=== PATIENT | female | born 1950 | race Caucasian/White ===

== ENCOUNTER → 2020-04-11 | Outpatient (CLI) | payer MEDICARE, OTHER ==
--- NOTE | 2020-04-11 19:12 | CTL ---
EXAMINATION TYPE: CT Low Dose Lung DATE OF EXAM ORDERED: 04/11/2020 HISTORY: Personal history tobacco use. Lung cancer screening CT DLP: 41.[address] CTDI: 1.1 mGy Automated exposure control for dose reduction was used. DLP 41.20 milligray centimeters SCREENING VISIT: 1 COMPARISON: CT chest 12/19/2014 TECHNIQUE: Low dose computed tomography scan was performed through the chest at 1 mm thick sections a nd reconstructed images in the coronal plane at [address] DIAGNOSTIC QUALITY: Satisfactory FINDINGS: LUNG NODULES: Present, detailed below: In the right middle lobe there is a wedge-shaped area of incre ased attenuation with some associated bronchiectasis that abuts the mediastinum similar to prior exam . In the anterior right upper lobe there is a nodular density measuring approximately 13 x 10 mm on a xial image 158 showing spiculated margin, extensions to the anterior pleural surface. In the right lower lobe there is a pleural-based soft tissue mass medially and posteriorly that measu res 3.9 x 3 cm LUNGS: COPD: Severity: Moderate to severe Fibrosis: Severity: Mild Lymph nodes: Subcentimeter retrocaval pretracheal node is present Other findings: Patient is cachectic RIGHT PLEURAL SPACE: Effusion: None Calcification: None Thickening: None Pneumothorax: None LEFT PLEURAL SPACE: Effusion: None Calcification: None Thickening: None Pneumothorax: None HEART: Heart Size: Normal Coronary calcification: Mild Pericardial effusion: None OTHER FINDINGS: Upper abdomen: Low dense focus within the left lobe of the liver measures 12 mm Bony thorax: There is a spinal curvature. Thoracic spondylosis is present. Supraclavicular region: No definite adenopathy Other: There is streak artifact due to patient's right shoulder prosthesis IMPRESSION: Suspicious CT LUNG RAD AND CT CHEST RECOMMENDATION: Lung-Rad 4B or 4X Very Suspicious: Follow-up Chest CT with o r without contrast or PET/CT and/or tissue sampling. S Modifier (other clinically significant findings):
== END | disposition home or self-care (01) ==
LOC: RADCTMAIN 14:11
PROVIDERS: ATTEND Family Medicine
DX: Z12.2 Encounter for screening for malignant neoplasm of respiratory organs (principal); Z87.891 Personal history of nicotine dependence
CPT/HCPCS: 71271

== ENCOUNTER → 2020-05-12 | Outpatient (CLI) | payer MEDICARE, OTHER ==
--- NOTE | 2020-05-15 17:43 | PE ---
Nuclear medicine PET/CT HISTORY: Lung carcinoma, initial Patient received 7.8 mCi F-18 FDG intravenously in delayed scanning was performed from skull base to the mid thighs. Localization and attenuation correction CT scan was performed. Correlation prior nuclear medicine PET/CT 12/31/2014, CT low dose 04/11/2020 Chest and neck: There is no supraclavicular or cervical adenopathy. No mediastinal, axillary, or oralia r adenopathy. Patient's lung mass in the right lower lobe shows hypermetabolic uptake, SUV is 11.7,th e right upper lobe anteriorly there is a nodular focus as identified on CT which also shows associate d hypermetabolic uptake, SUV is 2.4. Emphysematous changes are present within the lungs, there is no pleural or pericardial effusion. ABDOMEN: No suspicious uptake. No retroperitoneal adenopathy. No evident adrenal mass. There is no as cites or evident liver mass. Some bowel uptake is felt likely to be physiologic. Osseous structures show no suspicious uptake. There is degenerative disc disease and facet arthropath y. IMPRESSION: Findings consistent with patient's history of bronchogenic carcinoma, there may be metast asis, second primary
== END | disposition home or self-care (01) ==
LOC: RADPETMAIN 10:59
PROVIDERS: ATTEND Family Medicine
DX: C34.90 Malignant neoplasm of unspecified part of unspecified bronchus or lung (principal)
CPT/HCPCS: 78815; A9552

== ENCOUNTER 2020-07-12 07:58 | Day surgery (SDC) | payer MEDICARE, OTHER ==
[2020-07-12] MEDS ORDERED: ALPRAZolam 0.25 MG TAB PO PRN (08:02)
[2020-07-12] MEDS ORDERED: HYDROmorphone 0.5 MG/0.5 ML SYRINGE IVP PRN (08:02)
[2020-07-12 08:44] LABS: Mean Platelet Volume 8.9; Platelet Count 272 k/uL (150-450)
[2020-07-12 08:56] LABS: Prothrombin Time 10.5 sec (9.0-12.0)
[2020-07-12 08:57] VITALS: RESP 16; TEMP 97.7
--- NOTE | 2020-07-12 09:59 | XR ---
EXAMINATION TYPE: XR chest 1V portable DATE OF EXAM: 07/12/2020 COMPARISON: Chest x-ray 12/22/2014 HISTORY: Status post right lung biopsy TECHNIQUE: Single frontal view of the chest is obtained. FINDINGS: There is no evident pneumothorax. Right lower lobe lung mass is present. Apical pleural th ickening is present. Cardiac mediastinal silhouette is within normal limits. IMPRESSION: No evident complication status post right lung biopsy.
--- NOTE | 2020-07-12 10:36 | CT ---
EXAMINATION TYPE: CT biopsy lung RT DATE OF EXAM: 07/12/2020 HISTORY: Lung mass right lower lobe, R 91.1 COMPARISON: PET/CT dated 05/12/2020 Maximal barrier technique was utilized, hand hygiene obtained with soap and water. The skin overlyin g a suitable path to the right lower lobe lung mass was localized using CT and the overlying skin was prepped and draped. Lidocaine used for local anesthesia. A skin aftab made with a scalpel. Using C T guidance, access was gained to the lesion with a 20-gauge core needle coaxially through a 19-gauge guide. Core specimen submitted to laboratory for analysis. Following the procedure no immediate comp lications. The patient is discharged in stable condition. Hemostasis achieved. IMPRESSION: SUCCESSFUL CT GUIDED CORE LUNG BIOPSY. PATHOLOGY PENDING. THIS PROCEDURE WAS PERFORMED BY THE UNDER SIGNED.
--- NOTE | 2020-07-12 12:18 | XR ---
EXAMINATION TYPE: XR chest 1V portable DATE OF EXAM: 07/12/2020 COMPARISON: Chest x-ray earlier today HISTORY: Post right lung biopsy TECHNIQUE: Single frontal view of the chest is obtained. FINDINGS: Chronic parenchymal changes with bibasilar opacities. No pneumothorax after right-sided b iopsy. The cardiac silhouette size remains within normal limits. The osseous structures remain suzan neralized. Surgical changes to cervical spine and right shoulder are partially imaged. IMPRESSION: No pneumothorax after right-sided biopsy. Persistent medial right basilar mass. New Left basilar atelectasis.
[2020-07-12 12:28] VITALS: BP 133/60; PULSE 60
== END 2020-07-12 13:18 | disposition home or self-care (01) ==
LOC: RADPROMAIN 07:58
PROVIDERS: ATTEND Internal Medicine Sleep Medicine
DX: C34.31 Malignant neoplasm of lower lobe, right bronchus or lung (principal); J44.9 Chronic obstructive pulmonary disease, unspecified; Z79.1 Long term (current) use of non-steroidal anti-inflammatories (NSAID); Z79.899 Other long term (current) drug therapy; F17.210 Nicotine dependence, cigarettes, uncomplicated
CPT/HCPCS: 32408; 36415; 71045; 77012; 85049; 85610; 88305; 88341; 88342

== ENCOUNTER → 2020-07-19 | Outpatient (CLI) | payer MEDICARE, OTHER ==
[2020-07-19 14:25] LABS: African American GFR (CKD) >90 (>60 ml/min/1.73 sqM); Blood Urea Nitrogen 10 mg/dL (7-17); Non-African American GFR(CKD) 89 (>60 ml/min/1.73 sqM)
--- NOTE | 2020-07-19 15:24 | CT ---
EXAMINATION TYPE: CT brain w con DATE OF EXAM: 07/19/2020 COMPARISON: None HISTORY: Lung Cancer CT DLP: 1121 mGycm Automated exposure control for dose reduction was used. CONTRAST: CT scan of the head is performed with IV Contrast, patient injected with 100 ml mL of Isovue 300. FINDINGS: There is nodular prominence of the left MCA trifurcation measuring 3 mm suspicious for small aneurysm . There are no enhancing masses. Mild generalized degenerative change. No midline shift or mass effec t. Calvarium intact. Craniocervical junction maintained. Sella turcica has a normal appearance. Orbits are symmetric. No s ignificant changes of sinusitis. IMPRESSION: 1. No diagnostic evidence of intracranial metastases. 2. Nodular prominence of the left MCA trifurcation suspicious for aneurysm measuring 3 mm recommend M RA [facility] [place].
--- NOTE | 2020-07-19 15:33 | CT ---
EXAMINATION TYPE: CT chest w con DATE OF EXAM: 07/19/2020 COMPARISON: CT from PET/CT 05/12/2020 HISTORY: Lung cancer CT DLP: 354 mGycm Automated exposure control for dose reduction was used. CONTRAST: CT scan of the chest is performed with IV Contrast, patient injected with 100 ml mL of Isovue 300. FINDINGS: LUNGS: The lungs are remarkable for extensive emphysematous change. There is a nodular spiculated mas s in the right upper lobe hourglass in shape measuring 17 mm x 13 by 14 mm, there are pleural extensi ons There is no pleural effusion or pneumothorax seen. Some right middle lobe atelectatic lung or sca rring is present. The mass in the right lower lobe measures 5.4 x 4.2 x 4.8 cm which shows smooth mar gins, is pleural-based in the right lower lobe medially. The tracheobronchial tree is patent. MEDIASTINUM: There is right hilar adenopathy. Shotty nodes are present in the mediastinum. No perica rdial effusion is seen. AORTA: No additional significant abnormality is seen. OTHER: No evident adrenal mass, low dense focus within the left lobe liver is a stable finding. Post op change right shoulder IMPRESSION: Findings consistent with patient's history of echogenic carcinoma, probable metastasis, right hilar adenopathy, additional lesion in the right upper lobe as described.
== END | disposition home or self-care (01) ==
LOC: RADCTMAIN 13:06
PROVIDERS: ATTEND Internal Medicine Hematology & Oncology
DX: C34.31 Malignant neoplasm of lower lobe, right bronchus or lung (principal)
CPT/HCPCS: 82565; 84520; 70460; 71260; 36415; Q9967

== ENCOUNTER → 2020-07-28 | Outpatient (CLI) | payer MEDICARE, OTHER ==
--- NOTE | 2020-07-31 06:01 | PE ---
EXAMINATION TYPE: PET CT fusion skull to thigh DATE OF EXAM: 07/28/2020 COMPARISON: Prior PET/CT May 12, 2020 HISTORY: Right-sided lung cancer diagnosed in April 2020. TECHNIQUE: Following the intravenous administration of 8.67 mCi of F-18 FDG, whole body images are p erformed from the skull base to the midthigh. Images are reviewed on the computer in the coronal, ax ial, and sagittal planes. Reconstructed rotating images are created on independent workstation and r eviewed on the computer. A localization and attenuation correction CT is performed in conjunction w ith the PET scan. Blood glucose level was 82. SCAN: Subsequent Scan FINDINGS: SKULL BASE AND NECK: No new areas of abnormal hypermetabolic uptake. CHEST, MEDIASTINUM, AND HILAR REGION: Background moderate underlying emphysematous changes redemonstr ated. Persistent posterior medial right lower lobe hypermetabolic mass increased in size now measurin g 5.4 x 4.2 cm, max SUV is 11.42 on prior study fairly stable from prior. This corresponds to site of biopsy-proven adenocarcinoma. There is redemonstration of spiculated 1.5 x 1.1 cm lesion anterior right midlung with hypermetabolic uptake, max SUV is 3.58 on axial image 99 increased from prior. Prominent but subcentimeter right tracheobronchial lymph node axial image 92 is ametabolic. No new ar eas of abnormal hypermetabolic uptake. ABDOMEN AND PELVIS: There is oval eccentric hypermetabolic hyperdense lesion in the proximal transver se colon measuring 2.2 x 0.8 cm axial image 162, max SUV is 8.46. No adrenal masses. No additional areas of suspicious hypermetabolic uptake. OSSEOUS STRUCTURES: No new areas of abnormal hypermetabolic uptake. OTHER CT: Metallic hardware for right shoulder surgery is redemonstrated. S-shaped scoliosis. Facet a rthropathy lower lumbar levels. L5-S1 spondylolisthesis. IMPRESSION: Enlarging right lower lobe mass, max SUV fairly stable corresponds to site of biopsy-prov en adenocarcinoma. Spiculated nodule anterior right midlung fairly stable in size but increased max S UV. No new thoracic adenopathy. Suspicious lesion proximal transverse colon despite recent colonoscop y on PET/CT. No metastatic disease otherwise seen.
== END | disposition home or self-care (01) ==
LOC: RADPETMAIN 08:31
PROVIDERS: ATTEND Family Medicine
DX: C34.31 Malignant neoplasm of lower lobe, right bronchus or lung (principal)
CPT/HCPCS: 78815; A9552

== ENCOUNTER → 2020-08-23 | Outpatient (CLI) | payer MEDICARE, OTHER ==
[~2020-08-23] MED LIST: DOBUTamine DRIP for NUC MED 500 MG in DEXTROSE/WATER 1 250ML.BAG IV PRN
--- NOTE | 2020-08-23 15:32 | ECHOS ---
STRESS ECHOCARDIOGRAM DATE: 08/23/20. LUMASON: Vial INDICATIONS: Pre-Op. MEDICATIONS: BASELINE HEART RATE: 74 BASELINE BLOOD PRESSURE: 141/94 MAXIMUM HEART RATE: 128 MAXIMUM BLOOD PRESSURE: 141/94 85% MPHR: 128 100% MPHR: 151 METS: N/A MAXIMUM STAGE REACHED: N/A TOTAL EXERCISE TIME: 9:47 CLINICAL INFORMATION: Baseline EKG revealed normal sinus rhythm without significant ST changes. With dobutamine administration heart rate went up to 128 beats per minute. The patient did not have any significant symptoms. EKG was unremarkable. There was no arrhythmia. No significant arrhythmia. Rare PVCs were noted. By EKG criteria, this is unremarkable dobutamine stress test. At baseline echocardiogram revealed normal wall motion wall thickening of all segments. With dobutamine administration as per protocol there was progressive increase in contractility of all segments suggesting that there is no evidence of any stress- induced ischemia on this study. IMPRESSION: 1. By EKG criteria, this is a negative dobutamine stress test with without any angina or any EKG changes. 2. Normal dobutamine echocardiogram without evidence of ischemia. MMODL / IJN: [id number] /
== END | disposition home or self-care (01) ==
LOC: RADNMMAIN 09:48
PROVIDERS: ATTEND Thoracic Surgery (Cardiothoracic Vascular Surgery)
DX: Z01.812 Encounter for preprocedural laboratory examination (principal)
CPT/HCPCS: 93351

== ENCOUNTER 2020-09-13 07:00 | Emergency (ER) | payer MEDICARE, OTHER ==
[2020-09-13 07:23] VITALS: TEMP 98.3
--- NOTE | 2020-09-13 07:45 | ED ---
General Adult HPI - General Chief complaint: Recheck/Abnormal Lab/Rx Stated complaint: Post-op chest tube issues Time Seen by Provider: 09/13/20 07:26 Source: patient Mode of arrival: ambulatory Limitations: no limitations - History of Present Illness Initial comments: Dictation was produced using [employer] dictation software. please excuse any gramma tical, word or spelling errors. Chief Complaint: 70-year-old female presents to the emergency department for leaking postoperative chest tube History of Present Illness: 70-year-old female on Friday she was at [facility] where she had thoracoscopy for removal of adenocarcinoma of the lung. Postoperatively a right-sided chest tube was placed. She was hospitalized after the procedure per she was just discharged yesterday. She will go this morning and noticed that her chest tube dressing was saturated. She was told to seek a minute medical attention if she had any drainage. She denies any shortness of breath. Denies any fever, chills or night sweats. She reports that she actually feels pretty good. The ROS documented in this emergency department record has been reviewed and confirmed by me. Those systems with pertinent positive or negative responses have been documented in the HPI. All other systems are other negative and/or noncontributory. PHYSICAL EXAM: General Impression: Alert and oriented x3, not in acute distress HEENT: Normocephalic atraumatic, extra-ocular movements intact, pupils equal and reactive to light bilaterally, mucous membranes moist. Cardiovascular: Heart regular rate and rhythm Chest: Able to complete full sentences, no retractions, no tachypnea, bilateral breath sounds, dressing was removed from the anterior chest. There was no leakage of fluid or blood from the percutaneous chest tube site. All surgical sites are clean dry and intact to the right chest Abdomen: abdomen soft, non-tender, non-distended, no organomegaly Musculoskeletal: Pulses present and equal in all extremities, no peripheral edema Motor: no focal deficits noted Neurological: CN II-XII grossly intact, no focal motor or sensory deficits noted Skin: Intact with no visualized rashes Psych: Normal affect and mood ED course: 80 well-appearing female presents to the emergency department for surgical site leakage of fluid. Physical examination is benign. There is no drainage of fluid. Chest tube equipment appears to be functioning well without any leakage. There is slightly blood-tinged serosanguineous fluid in the chest tube reservoir. Vital signs upon arrival are within acceptable limits.I did speak with patient's primary surgeon Dr. Murphy who states that patient is okay for discharge. States that sometimes the site will leak which is entirely normal. Patient reevaluated bedside at 8:20 AM. She is well-appearing not showing any signs of distress. Patient is agreeable to discharge. She does have an outpatient appointment with her surgeon in 2 days. - Related Data Home Medications Medication Instructions Recorded Confirmed Cyclobenzaprine [Flexeril] 10 mg PO TID 12/19/14 07/12/20 Famotidine [Pepcid] 20 mg PO DAILY PRN 12/19/14 07/12/20 HYDROcodone/APAP 7.5-325MG [[place] 1 tab PO Q6HR PRN 12/19/14 07/12/20 7.5-325] Ibuprofen [Motrin] 800 mg PO Q6HR 12/19/14 07/12/20 traMADol HCl [Ultram] 50 mg PO Q6H PRN 12/19/14 07/12/20 Montelukast [Singulair] 10 mg PO DAILY 08/30/15 07/12/20 diazePAM [Valium] 1 mg PO ONCE 07/12/20 07/12/20 Allergies Allergy/AdvReac Type Severity Reaction Status Date / Time No Known Allergies Allergy Verified 09/13/20 07:17 Review of Systems ROS Statement: Those systems with pertinent positive or pertinent negative responses have been documented in the HPI. ROS Other: All systems not noted in ROS Statement are negative. Past Medical History Past Medical History: Cancer, GERD/Reflux, Musculoskeletal Disorder, Pneumonia History of Any Multi-Drug Resistant Organisms: None Reported Past Surgical History: Orthopedic Surgery, Tubal Ligation Additional Past Surgical History / Comment(s): shoulder, bilat elbow and thumb surgery, knee surgery, neck surgery, rt oopherectomy Past Anesthesia/Blood Transfusion Reactions: No Reported Reaction Additional Past Anesthesia/Blood Transfusion Reaction / Comment(s): patient states no reaction to anesthesia and that she has never received a blood transfusion Past Psychological History: No Psychological Hx Reported Smoking Status: Former smoker Past Alcohol Use History: None Reported Past Drug Use History: None Reported - Past Family History Father Family Medical History: Cancer General Exam Limitations: no limitations Course Vital Signs 09/13/20 07:18 Temperature 98.3 F Pulse Rate 102 H Respiratory 19 Rate Blood Pressure 141/96 O2 Sat by Pulse 92 L Oximetry Disposition Clinical Impression: Complication of chest tube Disposition: HOME SELF-CARE Condition: Good Instructions (If sedation given, give patient instructions): Chest Tubes (DC) Is patient prescribed a controlled substance at d/c from ED?: No Referrals: Fahad Romero MD [Primary Care Provider] - 1-2 days
--- NOTE | 2020-09-13 07:51 | XR ---
EXAMINATION TYPE: XR chest 1V portable DATE OF EXAM: 09/13/2020 HISTORY: Shortness of breath. COMPARISON: 07/12/2020 TECHNIQUE: Single view of the chest is submitted. FINDINGS: Right-sided chest tube is in place with its distal tip overlying the right apical region. There appea rs to be tiny residual right apical pneumothorax. Small amount of subcutaneous air seen along the upp er chest wall. Round mass is noted at the right medial lung base. Hyperinflation compatible with COPD. The heart is stable. Hilar and mediastinal structures are within normal limits. Degenerative changes are seen of the dorsal spine. IMPRESSION: 1. Right-sided chest tube is in place with its distal tip overlying the right apical region. There a ppears to be tiny residual right apical pneumothorax. Small amount of subcutaneous air seen along the upper chest wall.
[2020-09-13 08:29] VITALS: BP 141/91; PULSE 93; RESP 18
== END 2020-09-13 08:27 | disposition home or self-care (01) ==
LOC: EC 07:00
DX: T85.698A Other mechanical complication of other specified internal prosthetic devices, implants and grafts, initial encounter (principal); K21.9 Gastro-esophageal reflux disease without esophagitis; Z79.899 Other long term (current) drug therapy; Z79.1 Long term (current) use of non-steroidal anti-inflammatories (NSAID); Z87.891 Personal history of nicotine dependence
CPT/HCPCS: 71045; 99283

== ENCOUNTER → 2020-11-24 | Outpatient (CLI) | payer MEDICARE, OTHER ==
[2020-11-24 08:13] LABS: African American GFR (CKD) >90 (>60 ml/min/1.73 sqM); Non-African American GFR(CKD) >90 (>60 ml/min/1.73 sqM)
[2020-11-24 08:19] LABS: Blood Urea Nitrogen 15 mg/dL (7-17)
--- NOTE | 2020-11-24 11:20 | CT ---
EXAMINATION TYPE: CT chest w con DATE OF EXAM: 11/24/2020 COMPARISON: 07/28/2020 and 07/19/2020 HISTORY: 70-year-old female C34.11 Lung Ca, Z03.89 suspect mets TECHNIQUE: Contiguous axial scanning of the chest after the administration of 100 ml mL of Isovue 300 . Coronal/sagittal reconstructions performed. CT DLP: 104.10mGycm. Automatic exposure control utilized for a dose reduction. FINDINGS: Heart normal size without pericardial effusion. Mildly ectatic aortic root at 3.6 cm. Mildly ectatic ascending aorta 3.6 cm. Mild atherosclerotic arc h calcifications with conventional chest branching anatomy. 8 mm prominent but nonenlarged precarinal lymph node is unchanged. Right hilar lymph node measures 1.3 cm versus 1.7 cm, previously on 07/19/2020. No new or progressive t horacic lymphadenopathy seen. Moderately advanced centrilobular emphysema. Posterior right lower lobe mass measures 4.6 x 3.1 cm ve rsus 5.5 x 3.9 cm, previously. Graft surgical change periphery of the right midlung and also anterior medial right midlung. Interval resection of the previous anterior right midlung nodule. Some mild th ickening here likely represents scar tissue but should be reassessed at follow-up. No new pulmonary nodules Visualized upper abdomen shows a stable 8 mm cyst anterior left liver lobe. Moderate stool within the splenic flexure of the colon. Further clinical follow-up as well as appropriate for the increased up take within the proximal transverse colon seen on recent PET/CT. Bones: Right shoulder plasty. ACDF hardware. Mild degenerative disc disease mid to lower thoracic spi ne. No osseous destructive process. IMPRESSION: 1. Interval postsurgical change with resection of the previous anterior right midlung nodule. Some mi ld thickening here likely represents scarring and can be reassessed at follow-up. 2. Right hilar lymph node slightly smaller at 1.3 cm versus 1.7 cm, previously. 3. Posterior right lower lobe mass slightly smaller at 4.6 x 3.1 cm versus 5.5 x 2.9 cm, previously. 4. COPD with moderate to advanced emphysema. 5. Follow-up for the area of hypermetabolism along the proximal transverse colon as clinically indica mery. This area is not included on the current exam.
== END | disposition home or self-care (01) ==
LOC: RADCTMAIN 07:10
PROVIDERS: ATTEND Internal Medicine Hematology & Oncology
DX: C34.11 Malignant neoplasm of upper lobe, right bronchus or lung (principal); J43.9 Emphysema, unspecified
CPT/HCPCS: 82565; 84520; 71260; 36415; Q9967

== ENCOUNTER → 2020-12-22 | Outpatient (CLI) | payer MEDICARE, OTHER ==
--- NOTE | 2020-12-22 22:24 | PE ---
EXAMINATION TYPE: PET CT fusion skull to thigh DATE OF EXAM: 12/22/2020 COMPARISON: Most recent CT November 24, 2020. Most recent PET CT July 28, 2020 and older studies HISTORY: Right-sided lung cancer diagnosed April 2020 history of surgery and completed chemotherapy O ctober 25. TECHNIQUE: Following the intravenous administration of 10.74 mCi of F-18 FDG, whole body images are performed from the skull base to the midthigh. Images are reviewed on the computer in the coronal, a xial, and sagittal planes. Reconstructed rotating images are created on independent workstation and reviewed on the computer. A localization and attenuation correction CT is performed in conjunction with the PET scan. Blood glucose level equals 83. SCAN: Subsequent Scan FINDINGS: SKULL BASE AND NECK: No new areas of abnormal hypermetabolic uptake. CHEST, MEDIASTINUM, AND HILAR REGION: Background moderate underlying emphysematous changes are redemo nstrated. Diminished size to posterior medial right lower lung lesion measuring 4.1 x 2.6 cm currentl y ametabolic. Smaller spiculated lesion anteriorly and superior to this is not clearly seen, interval surgical corea ge at this level suspected from most recent PET/CT. Stable prominent but subcentimeter right tracheobronchial lymph node axial image 92 remains ametaboli c. No new hypermetabolic lymph nodes or additional hypermetabolic lesions. ABDOMEN AND PELVIS: Prior hypermetabolic transverse colonic lesion not clearly seen. No adrenal masses. No new areas of suspicious hypermetabolic uptake. OSSEOUS STRUCTURES: Mild diffuse uptake presumed posttreatment change. OTHER CT: Metallic hardware for right shoulder surgery is redemonstrated. S-shaped scoliosis. Facet a rthropathy lower lumbar levels. L5-S1 spondylolisthesis. IMPRESSION: Diminished size to the right lower lobe mass which is currently ametabolic. Interval rese ction of spiculated anterior right mid lung nodule. No new lesions or thoracic adenopathy. No metast atic disease otherwise seen. Complete positive treatment response. No hypermetabolic lesions seen currently.
== END | disposition home or self-care (01) ==
LOC: RADPETMAIN 11:19
PROVIDERS: ATTEND Internal Medicine Hematology & Oncology
DX: C34.31 Malignant neoplasm of lower lobe, right bronchus or lung (principal)
CPT/HCPCS: 78815; A9552

== ENCOUNTER 2021-02-03 11:29 | Emergency (ER) | payer MEDICARE, OTHER ==
[2021-02-03 11:39] VITALS: BP 115/85; PULSE 67; RESP 18; TEMP 98.4
[2021-02-03 12:43] LABS: Anisocytosis Slight; Basophils % (A) 0 %; Eosinophils # (A) 0.1 k/uL (0-0.7); Eosinophils % (A) 1 %; HCT 39.9 % (34.0-46.0); Lymphocytes % (A) 19 %; MCH 30.3 pg (25.0-35.0); MCHC 32.6 g/dL (31.0-37.0); MCV 92.8 fL (80.0-100.0); Mean Platelet Volume 8.3; Monocytes # (A) 0.2 k/uL (0-1.0); Monocytes % (A) 4 %; Neutrophils # (A) 3.9 k/uL (1.3-7.7); Neutrophils % (A) 75 %; Platelet Count 187 k/uL (150-450); RBC 4.31 m/uL (3.80-5.40); RDW 17.2 % (11.5-15.5); WBC 5.2 k/uL (3.8-10.6)
[2021-02-03 12:52] LABS: ALT 15 U/L (4-34); AST 31 U/L (14-36); African American GFR (CKD) 82 (>60 ml/min/1.73 sqM); Albumin 4.6 g/dL (3.5-5.0); Alkaline Phosphatase 56 U/L (38-126); Anion Gap 14 mmol/L; Blood Urea Nitrogen 20 mg/dL (7-17); Calcium 9.6 mg/dL (8.4-10.2); Carbon Dioxide 22 mmol/L (22-30); Chloride 99 mmol/L (98-107); Glucose 93 mg/dL (74-99); Magnesium 2.1 mg/dL (1.6-2.3); Non-African American GFR(CKD) 71 (>60 ml/min/1.73 sqM); Potassium 4.5 mmol/L (3.5-5.1); Sodium 135 mmol/L (137-145); Total Bilirubin 0.5 mg/dL (0.2-1.3); Total Protein 7.7 g/dL (6.3-8.2)
[2021-02-03] MEDS ORDERED: ACETAMINOPHEN TAB 325 MG TAB PO PRN (14:11)
[2021-02-03] MEDS ORDERED: NALOXONE 0.4 MG/ML 1 ML VIAL IV PRN (14:11)
--- NOTE | 2021-02-03 14:11 | ED ---
Recheck HPI - General Source: patient, RN notes reviewed Mode of arrival: ambulatory Limitations: no limitations <Layton Abreu - Last Filed: 02/03/21 14:07> <Yoshi Mejia - Last Filed: 02/03/21 14:16> - General Chief Complaint: Recheck/Abnormal Lab/Rx Stated Complaint: abd labs Time Seen by Provider: 02/03/21 11:39 - History of Present Illness Initial Comments: 70-year-old female presents emergency Department with chief complaint of abnormal labs. 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 She states her thyroid was off. She states she has no history of this. Patient does have a history of cancer in remission. Patient states that she's had no change in symptoms currently. No fevers or chills no nausea vomiting diarrhea constipation no chest pain or shortness breath (Layton Abreu) - Related Data Home Medications Medication Instructions Recorded Confirmed Cyclobenzaprine [Flexeril] 10 mg PO DAILY 12/19/14 02/03/21 Famotidine [Pepcid] 20 mg PO BID 12/19/14 02/03/21 HYDROcodone/APAP 7.5-325MG [[place] 1 tab PO Q6HR PRN 12/19/14 02/03/21 7.5-325] Ibuprofen [Motrin] 800 mg PO Q6HR 12/19/14 02/03/21 traMADol HCl [Ultram] 50 mg PO DAILY PRN 12/19/14 02/03/21 Montelukast [Singulair] 10 mg PO DAILY 08/30/15 02/03/21 Fluconazole [Diflucan] See Taper PO DAILY 02/03/21 02/03/21 Omeprazole 20 mg PO DAILY 02/03/21 02/03/21 ondansetron HCL [Zofran] 8 mg PO Q6H PRN 02/03/21 02/03/21 Allergies Allergy/AdvReac Type Severity Reaction Status Date / Time No Known Allergies Allergy Verified 02/03/21 13:03 Review of Systems ROS Other: All systems not noted in ROS Statement are negative. <Layton Abreu - Last Filed: 02/03/21 14:07> ROS Other: All systems not noted in ROS Statement are negative. <Yoshi Mejia - Last Filed: 02/03/21 14:16> ROS Statement: Those systems with pertinent positive or pertinent negative responses have been documented in the HPI. Past Medical History Past Medical History: Cancer, GERD/Reflux, Musculoskeletal Disorder, Pneumonia History of Any Multi-Drug Resistant Organisms: None Reported Past Surgical History: Orthopedic Surgery, Tubal Ligation Additional Past Surgical History / Comment(s): shoulder, bilat elbow and thumb surgery, knee surgery, neck surgery, rt oopherectomy Past Anesthesia/Blood Transfusion Reactions: No Reported Reaction Additional Past Anesthesia/Blood Transfusion Reaction / Comment(s): patient ates no reaction to anesthesia and that she has never received a blood transfusion Past Psychological History: No Psychological Hx Reported Smoking Status: Former smoker Past Alcohol Use History: None Reported Past Drug Use History: Marijuana - Past Family History Father Family Medical History: Cancer <Layton Abreu - Last Filed: 02/03/21 14:07> General Exam Limitations: no limitations General appearance: alert, in no apparent distress Head exam: Present: atraumatic, normocephalic, normal inspection ENT exam: Present: normal exam, normal oropharynx, mucous membranes moist Neck exam: Present: normal inspection. Absent: tenderness, meningismus, lymphadenopathy Respiratory exam: Present: normal lung sounds bilaterally. Absent: respiratory distress, wheezes, rales, rhonchi, stridor, decreased breath sounds Cardiovascular Exam: Present: regular rate, normal rhythm, normal heart sounds. Absent: systolic murmur, diastolic murmur, rubs, gallop, clicks <Layton Abreu - Last Filed: 02/03/21 14:07> Course <Yoshi Mejia - Last Filed: 02/03/21 14:16> Vital Signs 02/03/21 11:33 Temperature 98.4 F Pulse Rate 67 Respiratory 18 Rate Blood Pressure 115/85 O2 Sat by Pulse 95 Oximetry - Reevaluation(s) Reevaluation #1: 02/03/21 14:14 PA supervision: I did personally evaluate this case patient was sent emergency department after an abnormal blood drawn did show evidence of hypothyroidism. Case was discussed with Dr. Romero who did request the patient be admitted started on IV thyroid medication. (Yoshi Mejia) Medical Decision Making - Lab Data Result diagrams: 02/03/21 12:01 02/03/21 12:01 <Layton Abreu - Last Filed: 02/03/21 14:07> - Lab Data Result diagrams: 02/03/21 12:01 02/03/21 12:01 <Yoshi Mejia - Last Filed: 02/03/21 14:16> - Medical Decision Making 70-year-old presented for abnormal labs. TSH is greater than 100,000, free T4 less than 0.07 case discussed with PCP Dr. Sawyer recommends patient to be admitted started on IV levothyroxin (Layton Abreu) - Lab Data Lab Results 02/03/21 02/03/21 02/03/21 Range/Units 12: 12: 12: WBC 5.2 (3.8-10.6) k/uL RBC 4.31 (3.80-5.40) m/uL Hgb 13.0 (11.4-16.0) gm/dL Hct 39.9 (34.0-46.0) % MCV 92.8 (80.0-100.0) fL MCH 30.3 (25.0-35.0) pg MCHC 32.6 (31.0-37.0) g/dL RDW 17.2 H (11.5-15.5) % Plt Count 187 (150-450) k/uL MPV 8.3 Neutrophils % 75 % Lymphocytes % 19 % Monocytes % 4 % Eosinophils % 1 % Basophils % 0 % Neutrophils # 3.9 (1.3-7.7) k/uL Lymphocytes # 1.0 (1.0-4.8) k/uL Monocytes # 0.2 (0-1.0) k/uL Eosinophils # 0.1 (0-0.7) k/uL Basophils # 0.0 (0-0.2) k/uL Anisocytosis Slight Sodium 135 L (137-145) mmol/L Potassium 4.5 (3.5-5.1) mmol/L Chloride 99 (98-107) mmol/L Carbon Dioxide 22 (22-30) mmol/L Anion Gap 14 mmol/L BUN 20 H (7-17) mg/dL Creatinine 0.84 (0.52-1.04) mg/dL Est GFR (CKD-EPI)AfAm 82 (>60 ml/min/1.73 sqM) Est GFR (CKD-EPI)NonAf 71 (>60 ml/min/1.73 sqM) Glucose 93 (74-99) mg/dL Calcium 9.6 (8.4-10.2) mg/dL Magnesium 2.1 (1.6-2.3) mg/dL Total Bilirubin 0.5 (0.2-1.3) mg/dL AST 31 (14-36) U/L ALT 15 (4-34) U/L Alkaline Phosphatase 56 (38-126) U/L Total Protein 7.7 (6.3-8.2) g/dL Albumin 4.6 (3.5-5.0) g/dL TSH >100.000 H (0.465-4.680) mIU/L Free T4 <0.07 L (0.78-2.19) ng/dL Disposition <Layton Abreu - Last Filed: 02/03/21 14:07> <Yoshi Mejia - Last Filed: 02/03/21 14:16> Clinical Impression: Hypothyroidism Disposition: ADMITTED IP TO THIS HOSP Condition: Fair Referrals: Fahad Romero MD [Primary Care Provider] - 1-2 days
[2021-02-03] MEDS ORDERED: LEVOTHYROXINE IVP 100 MCG/5 ML VIAL IV SCH (14:15)
== END 2021-02-03 14:48 | disposition other institution (70) ==
LOC: EC 11:29 → 6NMEDSUR 14:15 → UNDOADMOB 14:15 → 6NMEDSUR 14:33 → EC 14:48
DX: R79.9 Abnormal finding of blood chemistry, unspecified (principal); E03.9 Hypothyroidism, unspecified; K21.9 Gastro-esophageal reflux disease without esophagitis; Z98.51 Tubal ligation status; F12.90 Cannabis use, unspecified, uncomplicated; Z87.891 Personal history of nicotine dependence
CPT/HCPCS: 36415; 80053; 83735; 84439; 84443; 85025; 96374; 99284

== ENCOUNTER 2021-03-02 11:13 | Emergency (ER) | payer MEDICARE, OTHER ==
[2021-03-02 11:22] VITALS: RESP 18
[2021-03-02] MEDS ORDERED: SODIUM CHLORIDE 0.9% 500 ML 500 ML IV STA (11:43)
[2021-03-02] MEDS ORDERED: MORPHINE SULFATE 2 MG/ML SYRINGE IVP ONE (11:43)
--- NOTE | 2021-03-02 11:52 | ED ---
General Adult HPI - General Chief complaint: Abdominal Pain Stated complaint: low abd pain/swelling Time Seen by Provider: 03/02/21 11:40 Source: patient, RN notes reviewed, old records reviewed Mode of arrival: ambulatory - History of Present Illness Initial comments: 70-year-old female, alert and oriented 4, presents to the emergency room with a family member with complaints of lower abdominal pain. Patient states that she feels hard lumps within her belly. She is having watery diarrhea today but no vomiting. Patient denies any chest pain or shortness of breath. She denies any fevers. She does have history of colon cancer and lung cancer/chemotherapy and is currently on oral immunosuppressants. Denies any previous abdominal surgeries. -: days(s) (2) Location: abdomen Severity scale (1-10): 5 Quality: aching Consistency: constant Improves with: none Worsens with: other (palpate) Associated Symptoms: denies other symptoms Treatments Prior to Arrival: none - Related Data Home Medications Medication Instructions Recorded Confirmed Cyclobenzaprine [Flexeril] 10 mg PO DAILY 12/19/14 02/03/21 Famotidine [Pepcid] 20 mg PO BID 12/19/14 02/03/21 HYDROcodone/APAP 7.5-325MG [[place] 1 tab PO Q6HR PRN 12/19/14 02/03/21 7.5-325] Ibuprofen [Motrin] 800 mg PO Q6HR 12/19/14 02/03/21 traMADol HCl [Ultram] 50 mg PO DAILY PRN 12/19/14 02/03/21 Montelukast [Singulair] 10 mg PO DAILY 08/30/15 02/03/21 Fluconazole [Diflucan] See Taper PO DAILY 02/03/21 02/03/21 Omeprazole 20 mg PO DAILY 02/03/21 02/03/21 ondansetron HCL [Zofran] 8 mg PO Q6H PRN 02/03/21 02/03/21 Previous Rx's Medication Instructions Recorded Levothyroxine Sodium [Synthroid] 100 mcg PO DAILY #7 tab 02/03/21 Allergies Allergy/AdvReac Type Severity Reaction Status Date / Time No Known Allergies Allergy Verified 03/02/21 11:22 Review of Systems ROS Statement: Those systems with pertinent positive or pertinent negative responses have been documented in the HPI. ROS Other: All systems not noted in ROS Statement are negative. Past Medical History Past Medical History: Cancer, GERD/Reflux, Musculoskeletal Disorder, Pneumonia Additional Past Medical History / Comment(s): colon and lung cancer (current treatment 2021) History of Any Multi-Drug Resistant Organisms: None Reported Past Surgical History: Orthopedic Surgery, Tubal Ligation Additional Past Surgical History / Comment(s): shoulder, bilat elbow and thumb surgery, knee surgery, neck surgery, rt oopherectomy Past Anesthesia/Blood Transfusion Reactions: No Reported Reaction Additional Past Anesthesia/Blood Transfusion Reaction / Comment(s): patient states no reaction to anesthesia and that she has never received a blood tra nsfusion Past Psychological History: No Psychological Hx Reported Smoking Status: Former smoker Past Alcohol Use History: None Reported Past Drug Use History: Marijuana - Past Family History Father Family Medical History: Cancer General Exam General appearance: alert, in no apparent distress Head exam: Present: atraumatic, normocephalic, normal inspection Eye exam: Present: EOMI. Absent: conjunctival injection, periorbital swelling Neck exam: Present: normal inspection. Absent: tenderness, meningismus Respiratory exam: Present: normal lung sounds bilaterally. Absent: respiratory distress, wheezes, rales, rhonchi, stridor, chest wall tenderness, accessory muscle use Cardiovascular Exam: Present: tachycardia GI/Abdominal exam: Present: soft, distended, tenderness, diminished bowel sounds, mass (Right lower). Absent: guarding, rebound, rigid Extremities exam: Present: normal inspection, full ROM, normal capillary refill. Absent: tenderness, pedal edema, joint swelling, calf tenderness Neurological exam: Present: alert, oriented X3 Psychiatric exam: Present: normal affect, normal mood Skin exam: Present: warm, dry, intact, normal color. Absent: rash, cyanosis, diaphoretic Course Vital Signs 03/02/21 03/02/21 11:19 14:42 Temperature 97.4 F L 96.1 F L Pulse Rate 116 H 94 Respiratory 18 18 Rate Blood Pressure 134/92 109/79 O2 Sat by Pulse 98 Oximetry Medical Decision Making - Medical Decision Making 70-year-old female presents with complaints of lower abdominal pain and hard lumps within abdomen. Watery diarrhea today but no vomiting. Denies hematochezia, fevers, chest pain or shortness of breath. She denies any previous abdominal surgeries. XR shows constipation which is consistent with physical exam, where you can feel hard stool within the colon. Patient was given fleets enema with some results i n the emergency room. She was directed to use magnesium citrate over the counter and follow-up with primary care doctor next week. Return to the emergency room with any new or concerning symptoms including increased pain, vomiting, fever or abnormal bleeding.. Case discussed with Dr. Archer - Lab Data Result diagrams: 03/02/21 11:52 03/02/21 11:52 Lab Results 03/02/21 03/02/21 03/02/21 Range/Units 11:52 11:52 11:52 WBC 7.6 (3.8-10.6) k/uL RBC 3.93 (3.80-5.40) m/uL Hgb 12.0 (11.4-16.0) gm/dL Hct 37.3 (34.0-46.0) % MCV 94.9 (80.0-100.0) fL MCH 30.4 (25.0-35.0) pg MCHC 32.0 (31.0-37.0) g/dL RDW 16.5 H (11.5-15.5) % Plt Count 273 (150-450) k/uL MPV 9.2 Neutrophils % 82 % Lymphocytes % 10 % Monocytes % 6 % Eosinophils % 1 % Basophils % 0 % Neutrophils # 6.3 (1.3-7.7) k/uL Lymphocytes # 0.8 L (1.0-4.8) k/uL Monocytes # 0.5 (0-1.0) k/uL Eosinophils # 0.0 (0-0.7) k/uL Basophils # 0.0 (0-0.2) k/uL Anisocytosis Slight PT 10.1 (9.0-12.0) sec INR 0.9 (<1.2) APTT 24.7 (22.0-30.0) sec Sodium 133 L (137-145) mmol/L Potassium 3.4 L (3.5-5.1) mmol/L Chloride 96 L (98-107) mmol/L Carbon Dioxide 28 (22-30) mmol/L Anion Gap 9 mmol/L BUN 19 H (7-17) mg/dL Creatinine 0.62 (0.52-1.04) mg/dL Est GFR (CKD-EPI)AfAm >90 (>60 ml/min/1.73 sqM) Est GFR (CKD-EPI)NonAf >90 (>60 ml/min/1.73 sqM) Glucose 111 H (74-99) mg/dL Lactic Ac Sepsis Rflx Plasma Lactic Acid Sanjay (0.7-2.0) mmol/L Calcium 9.5 (8.4-10.2) mg/dL Total Bilirubin 1.1 (0.2-1.3) mg/dL AST 21 (14-36) U/L ALT 11 (4-34) U/L Alkaline Phosphatase 127 H (38-126) U/L Total Protein 7.4 (6.3-8.2) g/dL Albumin 4.3 (3.5-5.0) g/dL Amylase 45 (30-110) U/L Lipase 30 (23-300) U/L 03/02/21 03/02/21 Range/Units 11:52 12:45 WBC (3.8-10.6) k/uL RBC (3.80-5.40) m/uL Hgb (11.4-16.0) gm/dL Hct (34.0-46.0) % MCV (80.0-100.0) fL MCH (25.0-35.0) pg MCHC (31.0-37.0) g/dL RDW (11.5-15.5) % Plt Count (150-450) k/uL MPV Neutrophils % % Lymphocytes % % Monocytes % % Eosinophils % % Basophils % % Neutrophils # (1.3-7.7) k/uL Lymphocytes # (1.0-4.8) k/uL Monocytes # (0-1.0) k/uL Eosinophils # (0-0.7) k/uL Basophils # (0-0.2) k/uL Anisocytosis PT (9.0-12.0) sec INR (<1.2) APTT (22.0-30.0) sec Sodium (137-145) mmol/L Potassium (3.5-5.1) mmol/L Chloride (98-107) mmol/L Carbon Dioxide (22-30) mmol/L Anion Gap mmol/L BUN (7-17) mg/dL Creatinine (0.52-1.04) mg/dL Est GFR (CKD-EPI)AfAm (>60 ml/min/1.73 sqM) Est GFR (CKD-EPI)NonAf (>60 ml/min/1.73 sqM) Glucose (74-99) mg/dL Lactic Ac Sepsis Rflx Y Plasma Lactic Acid Sanjay 2.2 H* (0.7-2.0) mmol/L Calcium (8.4-10.2) mg/dL Total Bilirubin (0.2-1.3) mg/dL AST (14-36) U/L ALT (4-34) U/L Alkaline Phosphatase (38-126) U/L Total Protein (6.3-8.2) g/dL Albumin (3.5-5.0) g/dL Amylase (30-110) U/L Lipase (23-300) U/L Disposition Clinical Impression: Constipation Disposition: HOME SELF-CARE Condition: Good Instructions (If sedation given, give patient instructions): Constipation (ED) Additional Instructions: Buy magnesium citrate over the counter and drink 6 ounces every day for the next 3 days. Increase your fluid intake. Return to the emergency room with any new or concerning symptoms including increased pain, fevers, or vomiting. Follow- up with the primary care doctor next week. Is patient prescribed a controlled substance at d/c from ED?: No Referrals: Fahad Romero MD [Primary Care Provider] - 1-2 days Time of Disposition: 14:29
[2021-03-02 12:16] LABS: Anisocytosis Slight; Basophils % (A) 0 %; Eosinophils % (A) 1 %; HCT 37.3 % (34.0-46.0); Lymphocytes # (A) 0.8 k/uL (1.0-4.8); Lymphocytes % (A) 10 %; MCH 30.4 pg (25.0-35.0); MCV 94.9 fL (80.0-100.0); Mean Platelet Volume 9.2; Monocytes # (A) 0.5 k/uL (0-1.0); Monocytes % (A) 6 %; Neutrophils # (A) 6.3 k/uL (1.3-7.7); Neutrophils % (A) 82 %; Platelet Count 273 k/uL (150-450); RBC 3.93 m/uL (3.80-5.40); RDW 16.5 % (11.5-15.5); WBC 7.6 k/uL (3.8-10.6)
[2021-03-02 12:28] LABS: ALT 11 U/L (4-34); AST 21 U/L (14-36); African American GFR (CKD) >90 (>60 ml/min/1.73 sqM); Albumin 4.3 g/dL (3.5-5.0); Alkaline Phosphatase 127 U/L (38-126); Amylase 45 U/L (30-110); Anion Gap 9 mmol/L; Blood Urea Nitrogen 19 mg/dL (7-17); Calcium 9.5 mg/dL (8.4-10.2); Carbon Dioxide 28 mmol/L (22-30); Chloride 96 mmol/L (98-107); Glucose 111 mg/dL (74-99); Lipase 30 U/L (23-300); Non-African American GFR(CKD) >90 (>60 ml/min/1.73 sqM); Potassium 3.4 mmol/L (3.5-5.1); Sodium 133 mmol/L (137-145); Total Bilirubin 1.1 mg/dL (0.2-1.3); Total Protein 7.4 g/dL (6.3-8.2)
[2021-03-02 12:43] LABS: INR 0.9 (<1.2); Partial Thromboplastin Time 24.7 sec (22.0-30.0); Prothrombin Time 10.1 sec (9.0-12.0)
--- NOTE | 2021-03-02 12:48 | XR ---
EXAMINATION TYPE: XR abdomen acute w cxr DATE OF EXAM: 03/02/2021 COMPARISON: NONE HISTORY: Pain TECHNIQUE: Supine, upright, and left side down lateral decubitus views of the abdomen are obtained. FINDINGS: Emphysematous changes are seen with areas of linear scar or atelectasis right midlung. Hear t size normal. Postsurgical change overlying the right shoulder and cervical spine. Diffuse osteopeni a. No pneumothorax or interstitial edema. Chronic interstitial lung disease suspected at the lung bas es. Bowel gas pattern is nonspecific there is prominent: Filled bowel loops with extensive retained fecal debris involving the colon. Could be on the basis of an ileus or partial obstructive pattern related to retained fecal debris. Other etiologies not excluded. Curvature of the spine with diffuse osteope sydnie. IMPRESSION: 1. Nonspecific abdomen with dilated colon and severe retained fecal debris within the sigmoid colon. There may be on the basis of constipation. Partial obstructive pattern not entirely excluded correlat e clinically. 2. COPD with linear scar or atelectasis right midlung area
[2021-03-02] MEDS ORDERED: NA PHOS,M-B/NA PHOS,DI-BA 133 ML ENEMA RECTAL STA (12:55)
[2021-03-02] MEDS ORDERED: SODIUM CHLORIDE 0.9% 500 ML 500 ML IV ONE (13:34)
[2021-03-02 14:44] VITALS: BP 109/79; PULSE 94; TEMP 96.1
== END 2021-03-02 14:42 | disposition home or self-care (01) ==
LOC: EC 11:13
DX: K59.00 Constipation, unspecified (principal); R10.30 Lower abdominal pain, unspecified; K21.9 Gastro-esophageal reflux disease without esophagitis; Z87.891 Personal history of nicotine dependence; Z79.899 Other long term (current) drug therapy
CPT/HCPCS: 80053; 82150; 83605; 83690; 85025; 85610; 85730; 74022; 99284; 96374; 96361; J2270; 36415

== ENCOUNTER → 2021-04-27 | Outpatient (CLI) | payer MEDICARE, OTHER ==
--- NOTE | 2021-04-30 06:32 | PE ---
EXAMINATION TYPE: PET CT fusion skull to thigh DATE OF EXAM: 04/27/2021 COMPARISON: Most recent PET CT December 22, 2020 and older studies HISTORY: Lung cancer progress study. Right-sided lung cancer diagnosed April 2020 history of surger y and completed chemotherapy December 11. TECHNIQUE: Following the intravenous administration of 8.2 mCi of F-18 FDG, whole body images are pe rformed from the skull base to the midthigh. Images are reviewed on the computer in the coronal, axi al, and sagittal planes. Reconstructed rotating images are created on independent workstation and re viewed on the computer. A localization and attenuation correction CT is performed in conjunction wi th the PET scan. Blood glucose level equals 64. SCAN: Subsequent Scan FINDINGS: SKULL BASE AND NECK: No new areas of abnormal hypermetabolic uptake. CHEST, MEDIASTINUM, AND HILAR REGION: Background moderate underlying emphysematous change is redemons trated. Stable posterior medial right lower lung lesion measuring 3.9 x 2.5 cm remains low dense and ametabolic. Surgical change anterior superior to this redemonstrated. No new areas of abnormal hypermetabolic upt jae. Stable prominent but subcentimeter right tracheobronchial lymph node axial image 80. No new abnormal hypermetabolic lymph nodes. New hypermetabolic subcentimeter right axillary lymph node with retained fatty hilum axial image 55, max SUV is 5.37. ABDOMEN AND PELVIS: No new adrenal masses. Normal excretion. No new areas of suspicious hypermetabolic uptake. OSSEOUS STRUCTURES: Resolved Mild diffuse uptake. No new focal abnormal hypermetabolic uptake. OTHER CT: Metallic hardware for right shoulder surgery is redemonstrated. S-shaped scoliosis. Facet a rthropathy lower lumbar levels. L5-S1 spondylolisthesis. IMPRESSION: New hypermetabolic right axillary lymph node. Correlate for recent covid-19 vaccine and/ or booster administration. Consider PET CT follow-up in 6-8 weeks' time to reassess. Otherwise no recurrent or new hypermetabolic lesions are identified.
== END | disposition home or self-care (01) ==
LOC: RADPETMAIN 13:27
PROVIDERS: ATTEND Internal Medicine Hematology & Oncology
DX: C34.11 Malignant neoplasm of upper lobe, right bronchus or lung (principal)
CPT/HCPCS: 78815; A9552